=== PATIENT | male | born 1980 | race Caucasian/White ===

== ENCOUNTER 2019-03-17 15:43 | Emergency (ER) | payer SELFPAY ==
[~2019-03-17] VITALS: Ht 182.9 cm; Wt 99.8 kg
--- NOTE | 2019-03-17 16:06 | ED EENT ---
History of Present Illness General Chief Complaint: Dental Problems/Pain Stated Complaint: RT SIDE FACE SWELLING, PAIN Nursing Triage Note: Is scheduled for a root canal on . Was put on amoxicillin a week ago and then switchted to clindamycin yesterday. Swelling and pain are worse today and was told by dentist to come in if it worsened over the weekend. History of Present Illness Date Seen by Provider: March 17, 2019 Time Seen by Provider: 15:54 This is a 39-year-old man here for right upper dental pain and swelling. He is scheduled for a root canal, he had finished a course of amoxicillin and then has now completed nearly 2 days of clindamycin but his pain is persisting and over the last day he has had increased swelling of the right cheek. He has no difficulty swallowing or breathing. No fever or chills. No headache. No visual change or focal weakness, numbness, or tingling. Allergies and Home Medications Allergies Coded Allergies: No Known Drug Allergies (Unverified , 03/17/19) Patient Home Medication List Home Medication List Reviewed: Yes Review of Systems Review of Systems Constitutional: no symptoms reported Eyes: No Symptoms Reported Ears: No Symptoms Reported Nose: no symptoms reported Mouth: see HPI Throat: no symptoms reported Respiratory: no symptoms reported Cardiovascular: no symptoms reported Gastrointestinal: no symptoms reported Musculoskeletal: no symptoms reported Skin: no symptoms reported Neurological: No Symptoms Reported Hematologic/Lymphatic: No Symptoms Reported Past [id number]-[id number] Hx Past Med/Social Hx: Reviewed Nursing Past Med/Soc Hx Patient Social History Alcohol Use: Occasionally Uses Recreational Drug Use: No Smoking Status: Current Everyday Smoker Type Used: Smokeless Tobacco 2nd Hand Smoke Exposure: Yes Recent Foreign Travel: No Contact w/Someone Who Travel: No Recent Infectious Disease Expo: No Recent Hopitalizations: No Physical Abuse: No Sexual Abuse: No Mistreated: No Fear: No Seasonal Allergies Seasonal Allergies: No Past Medical History Surgeries: Yes (R femur fx) Orthopedic Respiratory: No Cardiac: No Neurological: No Genitourinary: No Gastrointestinal: No Musculoskeletal: No Endocrine: No HEENT: No Cancer: No Psychosocial: No Blood Disorders: No Physical Exam Vital Signs Vital Signs - First Documented 03/17/19 15:56 Temp 98.1 Pulse 109 Resp 18 B/P (MAP) 163/97 (119) Pulse Ox 99 Height, Weight, BMI Height: 6'0" Weight: 220lbs. oz. 99.425126ek; BMI Method:Stated General Appearance: no apparent distress Eyes: bilateral eye PERRL, bilateral eye EOMI Mouth/Throat: other (there is mild swelling over the right maxillary region, there is no fluctuance with in the gingival sulcus to suggest drainable abscess) Neck: supple Cardiovascular: normal peripheral pulses, regular rate, rhythm Respiratory: lungs clear Gastrointestinal: non tender, soft Neurologic/Psychiatric: nut process helper II-XII nml as tested, no motor/sensory deficits, alert, oriented x 3; No abnormal cerebellar tests, No abnormal gait Skin: warm/dry Progress/Results/Core Measures Results/Orders My Orders Orders - ALEXANDER LOPES DO Dexamethasone Injection (Decadron Inject (03/17/19 16:15) Medications Given in ED Current Medications Medications Dose Ordered Sig/Amrita Route Start Time Stop Time Status Last Admin Dose Admin Dexamethasone Sodium Phosphate 10 mg ONCE ONCE PO 03/17/19 16:15 03/17/19 16:16 DC 03/17/19 16:12 10 MG Vital Signs/I&O 03/17/19 03/17/19 15:56 16:17 Temp 98.1 Pulse 109 95 Resp 18 16 B/P (MAP) 163/97 (119) 158/98 (118) Pulse Ox 99 98 Blood Pressure Mean: 119 Progress Progress Note : Progress Note Patient has minimal swelling over the right maxillary region, he does have tenderness in the gingival sulcus but no fluctuance and no significant mucosal erythema. There is no evidence of drainable abscess, airway is intact, patient is neurovascularly intact with no systemic symptoms. I offered an oral dose of dexamethasone which may help with his pain and swelling somewhat, otherwise it think it is completely appropriate that he follow-up with the dentist on Tuesday and he return if worse. Departure Impression Primary Impression: Dental infection Disposition: 01 HOME, SELF-CARE Condition: Stable Departure-Patient Inst. Referrals: NO,LOCAL PHYSICIAN (PCP) Primary Care Physician Please see your dentist as soon as possible and return to the nearest emergency department for any worsening of your condition. Patient Instructions: Tooth Abscess (DC) ALEXANDER LOPES DO March 17, 2019 16:06
[2019-03-17] MEDS ORDERED: DEXAMETHASONE 10 MG/ML (DECADRON) 1 ML VIAL PO ONE (16:15)
[2019-03-17 16:17] VITALS: BP 158/98
== END 2019-03-17 16:18 | disposition home or self-care (01) ==
LOC: ER FS 15:44
DX: K04.7 Periapical abscess without sinus (principal); F17.210 Nicotine dependence, cigarettes, uncomplicated
CPT/HCPCS: 99283